=== PATIENT | male | born 1930 | race African-American/Black ===

== ENCOUNTER 2018-11-12 08:55 | Emergency (ER) | payer MEDICARE, BC ==
[~2018-11-12] VITALS: Ht 180.3 cm; Wt 104.0 kg
[2018-11-12] MEDS ORDERED: IBUPROFEN 600MG TABLET PO ONE (10:30)
[2018-11-12] MEDS ORDERED: TETANUS, DIPHTHERIA, PERTUSSIS VAC/PF 0.5ML (>7YR OLD) IM ONE (10:30)
[2018-11-12 12:15] VITALS: BP 141/50
== END 2018-11-12 12:16 | disposition home or self-care (01) ==
LOC: ER 09:04
DX: S01.511A Laceration without foreign body of lip, initial encounter (principal); S00.81XA Abrasion of other part of head, initial encounter; S80.211A Abrasion, right knee, initial encounter; S60.511A Abrasion of right hand, initial encounter; S60.512A Abrasion of left hand, initial encounter; R03.0 Elevated blood-pressure reading, without diagnosis of hypertension; Z23 Encounter for immunization; W01.198A Fall on same level from slipping, tripping and stumbling with subsequent striking against other object, initial encounter; Y93.01 Activity, walking, marching and hiking; Y92.480 Sidewalk as the place of occurrence of the external cause
CPT/HCPCS: 70486; 73130; 90471; 90715; 99284